=== PATIENT | female | born 1995 | race Caucasian/White ===

== ENCOUNTER 2017-01-14 09:44 | Inpatient (IN) | payer BC, OTHER ==
[~2017-01-14] VITALS: Ht 170.2 cm; Wt 56.7 kg
[2017-01-14] MEDS ORDERED: DICYCLOMINE HCL 20 MG TABLET PO PRN (18:00)
[2017-01-14] MEDS ORDERED: BUPRENORPHINE HCL 2 MG TAB.SUBL SL PRN (18:00)
[2017-01-14] MEDS ORDERED: MAGNESIUM HYDROXIDE 30 ML LIQUID UDC PO PRN (18:00)
[2017-01-14] MEDS ORDERED: MIRALAX 17 GM POWD.PACK PO PRN (18:00)
[2017-01-14] MEDS ORDERED: LORAZEPAM 1 MG TABLET PO PRN ×2 (18:00)
[2017-01-14] MEDS ORDERED: CLONIDINE HCL 0.1 MG TABLET PO PRN (18:00)
[2017-01-14] MEDS ORDERED: LORAZEPAM 2 MG/1 ML VIAL IM PRN (18:00)
[2017-01-14] MEDS ORDERED: diphenhydrAMINE 50 MG CAPSULE PO PRN (18:00)
[2017-01-14] MEDS ORDERED: IBUPROFEN 400 MG TABLET PO PRN (18:00)
[2017-01-14] MEDS ORDERED: ONDANSETRON ODT 4 MG TAB.RAPDIS SL PRN (18:00)
[2017-01-14] MEDS ORDERED: LOPERAMIDE HCL 2 MG CAPSULE PO PRN ×2 (18:00)
[2017-01-14] MEDS ORDERED: METHOCARBAMOL 750 MG TABLET PO PRN (18:00)
[2017-01-14] MEDS ORDERED: ONDANSETRON 4 MG/2 ML VIAL IM PRN (18:00)
[2017-01-14] MEDS ORDERED: MAG HYDROX/AL HYDROX/SIMETH 30 ML LIQUID UDC PO PRN (18:00)
[2017-01-14] MEDS ORDERED: ACETAMINOPHEN 325 MG TABLET PO PRN (18:00)
[2017-01-14 18:34] VITALS: BP 101/66
--- NOTE | 2017-01-14 18:36 | NUR ---
PRE-ADMISSION Pt is a 21 yr old female, AA&Ox4. [facility] for heroin and benzo use. Pt denies any allergies. Body check was complete. Skin is intact, warm and dry to touch. No tremors seen or felt. VS are 101/66, P 112, R 16, T 98.7, O2 97%, 0/10 pain. COWS score was 4, CIWA score was 2. No acute distress noted. Pt was oriented around unit and equipment in room. Will endorsed to rn shift mgr nurse to continue with full admission assessment.
[2017-01-14 18:37] LABS: *AMPHETAMINE, URINE POSITIVE (NEGATIVE); *BARBITURATE, URINE NEGATIVE (NEGATIVE); *CANNABINOID, URINE POSITIVE (NEGATIVE); *COCCAINE, URINE NEGATIVE (NEGATIVE); *OPIATE, URINE POSITIVE (NEGATIVE); *PHENCYCLIDINE SCREEN,URINE NEGATIVE (NEGATIVE)
[2017-01-14 18:46] LABS: *URINE HCG, QUAL NEGATIVE (NEGATIVE)
[2017-01-14 19:50] LABS: ALANINE AMINOTRANSFERASE 18 U/L (14-59); ALBUMIN 3.6 g/dL (3.4-5.0); ALKALINE PHOSPHATASE 124 U/L (50-136); ASPARTATE AMINOTRANSFERASE 17 U/L (15-37); BILIRUBIN,TOTAL 0.3 mg/dL (0.2-1.0); CALCIUM 8.7 mg/dL (8.5-10.1); CARBON DIOXIDE 23 mmol/L (21-32); CHLORIDE 107 mmol/L (98-107); CREATININE 0.7 mg/dL (0.6-1.3); GFR 106 mL/min (>60); GLUCOSE 103 mg/dL (74-106); MAGNESIUM 1.8 mg/dL (1.8-2.4); POTASSIUM 3.3 mmol/L (3.5-5.1); SODIUM SERUM 142 mmol/L (136-145); TOTAL PROTEIN, SERUM 7.5 g/dL (6.4-8.2); UREA NITROGEN, BLOOD 10 mg/dL (7-18)
[2017-01-14 19:55] LABS: THYROID STIMULATING HORMONE 0.578 mIU/mL (0.358-3.740)
[2017-01-14 20:00] VITALS: BP 96/60
--- NOTE | 2017-01-14 20:00 | NUR ---
ADMISSION NOTE Pt is 21 year old female, admitted to [facility] 3rd floor on 01/14/17 at 1836. As per day shift reports, body check was done, no contraband found. Pt in room, alert, awake, oriented x 4; pt ambulatory with steady gait. Pt is a primary source of information. Pt reports NKA, NKFA. Pt repots his PCP is Dr Alisha MD from [place]. Pt denies hospitalizations within past year, last hospitalization 1.5 yrs ago for drug overdose in [place]. Pt reports PMH of: (1) anxiety - was diagnosed in 2006; pt states he doesn't take any medications for anxiety, but "used to be prescribed Klonopin", which she has not taken since 2016. Pt denies hx of seizures. Pt denies taking any medication at home. Pt reports taking the following substances: 1. Xanax - pt reports she started to use Xanax in 2006, occasionally. By age 16, pt reports "abusing Xanax". For last 8 months, pt reports taking 4-7 mg every day or every other day; last time taken 4.3.17 in the amount of 2 mg PO. 2. Heroin - pt reports she started to use in 2013, at the beginning only "occasionally", until gradually she begun to use heroin daily. For past 4 months, pt has been using 1 g of heroin daily IV, last dose on 01/13/17, in the amount of 0.5 g IV 3. Methamphetamine - pt reports she takes methamphetamine "occasionally", started to use it 4 months ago, approximately once a month, of unknown amount, last taken 4.2.17, IV, unknown amount. 4. Marijuana - pt reports she started to use 11 years ago, on average smoking 1 g 2-3 grams of week; last use on 01/14/17, 1 g by smoking Rehab/ detox history: 1. Detox of [facility] - x 5 days 2. [facility], [place] - for 2 wks [address] [facility], [place] - - for 90 days Longest period of sobriety 109 days from February 2016 to Jun, 2016 Pt reports smoking tobacco since 2006, approximately 1/2 pack per day. Information on smoking cessation provide, reinforcement need d/t emotional factor. Pt presents aaox4, cooperative; is primary source of information, speech clear, information consistent. Denies SI/HI. Skin intact, warm, dry, pt reports mild anxiety, mild body aches 4/10, chills; no tremors noted; COWS score 4, CIWA score 2. Skin intact, warm. All extremities with full ROM. No SOB noted, RR even and unlabored, lung sounds clear. Heart rate regular, no murmurs, pt denies chest pain, Cap refill < 3 sec. No edema noted. Bowel sounds present x 4, last BM 01/13/17; pt denies n/v/d. No urinary difficulties reported. Pt oriented to unit and room. Pt is on fall precautions, side rails up x 2, call light within reach, bed locked in lowest position. Will continue with plan of care
[2017-01-14 20:08] LABS: HIV-1 p24 ANTIGEN NON REACTIVE (NONREACTIVE); HIV-1/2 ANTIBODY NON REACTIVE (NONREACTIVE)
[2017-01-14 20:11] LABS: ETHANOL < 3 MG/DL (0-0)
[2017-01-14] MEDS ORDERED: POTASSIUM CHLORIDE 20 MEQ TAB.PRT.SR PO ONE (20:30)
[2017-01-14 20:33] LABS: BASOPHILS # (AUTO) 0.1 K/uL (0.0-0.2); BASOPHILS % (AUTO) 0.5 % (0.0-2.0); EOSINOPHILS # (AUTO) 0.4 K/uL (0.0-0.7); EOSINOPHILS % (AUTO) 2.5 % (0.0-7.0); HEMATOCRIT 34.6 % (37.0-47.0); HEMOGLOBIN 12.4 g/dL (12.0-16.0); LYMPHOCYTES # (AUTO) 5.4 K/uL (0.8-4.8); LYMPHOCYTES % (AUTO) 37.9 % (20.5-51.5); MEAN CORPUSCULAR HEMOGLOBIN 30.6 uug (27.0-31.0); MEAN CORPUSCULAR HGB CONC 36 g/dL (32.0-37.0); MEAN CORPUSCULAR VOLUME 85.3 fL (81.0-99.0); MONOCYTES # (AUTO) 0.8 K/uL (0.1-1.30); MONOCYTES % (AUTO) 5.6 % (0.0-11.0); NEUTROPHILS # (AUTO) 7.5 K/uL (1.8-8.9); NEUTROPHILS % (AUTO) 53.5 % (38.5-71.5); PLATELET COUNT (AUTO) 228 K/uL (150-450); RED BLOOD CELL COUNT(AUTO) 4.05 MIL/uL (4.20-5.40); RED CELL DISTRIBUTION WIDTH 12.3 % (11.5-14.5); WHITE BLOOD COUNT (AUTO) 14.2 K/uL (4.0-11.2)
[2017-01-14] MEDS ORDERED: THIAMINE HCL 200 MG/2 ML VIAL IM ONE (21:00)
[2017-01-14] MEDS: GABAPENTIN 300 MG CAPSULE PO SCH (21:05)
--- NOTE | 2017-01-14 21:05 | NUR ---
PRN ROBAXIN;THIAMINE NON ADMIN Pt c/o body aches 01/21. Administered Robaxin 750 mg PO prn as ordered. Pt refused scheduled thiamine injection, states "I don't want any needles". Risk and benefits explained, pt offered to take medication 3 times, but still refused.
--- NOTE | 2017-01-14 22:00 | NUR ---
REASSESSMENT Pt states body aches decreased to 2/10 any tolerable at this time. Will continue to monitor
[2017-01-15] VITALS: BP 101/57
[2017-01-15 04:00] VITALS: BP 95/68
[2017-01-15] MEDS: HYDROXYZINE PAMOATE 25 MG CAPSULE PO PRN (04:03)
--- NOTE | 2017-01-15 04:05 | NUR ---
PRN VISTARIL Pt called, c/o increased irritability and anxiety. BP 95/68, HR 96, RR 17, SpO2 98%, CIWA = 4, COWS =4, administered Vistaril 50 mg PO prn as ordered. Side rails up x2, bed locked in lowest position, call light within reach. Will continue to monitor
--- NOTE | 2017-01-15 05:05 | NUR ---
REASSESSMENT Pt resting with eyes closed, RR unlabored at 15 breaths per minute. Fall precautions in place, will continue to monitor
--- NOTE | 2017-01-15 07:16 | NUR ---
END OF SHIFT NOTE Pt is 21 y o female, admitted on 01/14/17 for Xanax (4-7 mg daily for 8 months), heroin (1 g daily for 4 months), methamphetamine and marijuana dependence. Pt is to start 4 day Subutex taper today; has prn Ativan available based on CIWA scores. Pt was cooperative. Withdrawal s/s included anxiety, body aches 4/10, sweats, chills. Pt was medicated with prn Robaxin at 2105 and prn Vistaril at 0405; both medications were effective. Pt refused scheduled b1 injection. SBP ranged 95-101, DBP ranged 57-68 m Hg. Last COWS 4, CIWA 4 at 0400.Pt slept for 7 hrs, Po intake 650 ml, urination x 1. Lab upon admission revealed K level of 3.3; was replaced with 40 mEq of KDur. PMH of anxiety. Pt full code, regular diet, NKA. Fall precautions in place. Report endorsed to day shift nurse.
--- NOTE | 2017-01-15 07:30 | NUR ---
Start of shift note; Received report from night nurse. Patient is AOX4. Patient is a 21 y/o female admitted on 01/14/17 for Benzo/Opiate dependence. Patient reported PMH of anxiety. Patient is on full code status, regular diet, NKA. Patient was placed on a 4 day Subutex taper and Ativan PRN. Patient's last COWS is 4 and last CIWA is 4. All safety measures secured. Will continue to monitor patient.
[2017-01-15 08:00] VITALS: BP 94/66
[2017-01-15] MEDS: MULTIVITAMINS,THERAPEUTIC TABLET PO SCH (08:21)
[2017-01-15] MEDS: GABAPENTIN 300 MG CAPSULE PO SCH ×3 (08:21→22:27)
[2017-01-15] MEDS: FOLIC ACID 1 MG TABLET PO SCH (08:21)
[2017-01-15] MEDS: THIAMINE HCL 100 MG TABLET PO SCH (08:21)
[2017-01-15] MEDS: DOCUSATE SODIUM 250 MG CAPSULE PO SCH (08:21)
[2017-01-15] MEDS: BUPRENORPHINE HCL 2 MG TAB.SUBL SL SCH ×3 (08:22→22:27)
[2017-01-15] MEDS ORDERED: TUBERCULIN,PURIF.PROT.DERIV. 5 TU/0.1 ML TEST ID ONE (09:00)
[2017-01-15] MEDS ORDERED: 4 DAY TAPER BUPRENORPHINE -SERENITY PROTOCOL SL PRN (09:00)
--- NOTE | 2017-01-15 10:13 | NUR ---
PRN medication; Patient noted to be anxious, With CIWA score of 6 and obvious s/s of withdrawals ie; hot and cold flushes, stomach cramps and muscles aches. PRN Ativan 1mg PO given as per ordered for CIWA of 6. MD made aware. Will continue to monitor patient.
--- NOTE | 2017-01-15 11:13 | NUR ---
Re-assessment; Patient is calm and comfortable at this time with current CIWA score of 4. Will closely monitor patient.
[2017-01-15 12:00] VITALS: BP 102/52
[2017-01-15] MEDS: LORAZEPAM 1 MG TABLET PO SCH ×3 (13:15→22:27)
--- NOTE | 2017-01-15 15:26 | NUR ---
Nurse note; Patient appeared to be sedated,responsive to tactile/verbal stimuli, respirations even and unlabored.Patient's 1500 medications held d/t sedation.Safety measures secured. Will closely monitor patient.
[2017-01-15 16:00] VITALS: BP 98/60
--- NOTE | 2017-01-15 18:19 | NUR ---
End of shift note; Patient is AOX4. Patient is a 21 y/o female admitted on 01/14/17 for Benzo/Opiate dependence. Patient reported PMH of anxiety. Patient is on full code status, regular diet, NKA. Patient was placed on a 4 day Subutex taper and Ativan taper. Patient's last COWS is 7 and last CIWA is 8. All safety measures secured. Patient remained compliant with treatment plan. Safety measures secured. Met all needs.
--- NOTE | 2017-01-15 19:15 | NUR ---
Start of shift note Received report from day shift nurse. Pt is a 21 yo Female, A+Ox4, presenting to [facility] for Benzo/Opiate dependence. Pt has NKA, is Full Code status, and on Regular diet. Pt is on Fall precautions. Pt has HX of Anxiety. Pt is on 4 day Subutex and Ativan tapers, tolerated well. No s/s of distress noted at this time. Respirations even and unlabored. Will continue to monitor.
[2017-01-15 20:38] VITALS: BP 81/43
--- NOTE | 2017-01-16 00:39 | NUR ---
V/S, CIWA, and COWS Refused V/S, CIWA, and COWS Refused. No s/s of distress noted at this time. Respirations even and unlabored. Will continue to monitor.
--- NOTE | 2017-01-16 04:07 | NUR ---
V/S, CIWA, and COWS Refused V/S, CIWA, and COWS Refused. No s/s of distress noted at this time. Respirations even and unlabored. Will continue to monitor.
--- NOTE | 2017-01-16 07:05 | NUR ---
End of shift note Pt is a 21 yo Female, A+Ox4, presenting to [facility] for Benzo/Opiate dependence. Pt has NKA, is Full Code status, and on Regular diet. Pt is on Fall precautions. Pt has HX of Anxiety. Pt is on 4 day Subutex and Ativan tapers, tolerated well. Pt slept for a total of 11 HRS. Last COWS: 0 and Last CIWA: 1 @2000. No s/s of distress noted at this time. Respirations even and unlabored. Will endorse to day shift nurse.
--- NOTE | 2017-01-16 07:59 | NUR ---
Start of shift note; Received report from night nurse. Patient is AOX4. Patient is a 21 y/o female admitted on 01/14/17 for Benzo/Opiate dependence. Patient reported PMH of anxiety. Patient is on full code status, regular diet, NKA. Patient was placed on a 4 day Subutex taper and Ativan taper. Patient's last COWS is 2 and last CIWA is 2. All safety measures secured. Will continue to monitor patient.
[2017-01-16 08:00] VITALS: BP 98/64
[2017-01-16] MEDS ORDERED: BUPRENORPHINE HCL 2 MG TAB.SUBL SL SCH (09:00)
[2017-01-16] MEDS: GABAPENTIN 300 MG CAPSULE PO SCH ×3 (09:10→22:04)
[2017-01-16] MEDS: FOLIC ACID 1 MG TABLET PO SCH (09:10)
[2017-01-16] MEDS: DOCUSATE SODIUM 250 MG CAPSULE PO SCH (09:10)
[2017-01-16] MEDS: MULTIVITAMINS,THERAPEUTIC TABLET PO SCH (09:10)
[2017-01-16] MEDS: LORAZEPAM 1 MG TABLET PO SCH ×3 (09:10→22:05)
[2017-01-16] MEDS: THIAMINE HCL 100 MG TABLET PO SCH (09:10)
[2017-01-16 09:19] LABS: BASOPHILS % (AUTO) 0.5 % (0.0-2.0); EOSINOPHILS # (AUTO) 0.2 K/uL (0.0-0.7); HEMATOCRIT 38.4 % (37.0-47.0); HEMOGLOBIN 13.1 g/dL (12.0-16.0); LYMPHOCYTES % (AUTO) 40.1 % (20.5-51.5); MEAN CORPUSCULAR HEMOGLOBIN 29.3 uug (27.0-31.0); MEAN CORPUSCULAR HGB CONC 34 g/dL (32.0-37.0); MEAN CORPUSCULAR VOLUME 85.7 fL (81.0-99.0); MONOCYTES # (AUTO) 0.5 K/uL (0.1-1.30); MONOCYTES % (AUTO) 7.3 % (0.0-11.0); NEUTROPHILS # (AUTO) 3.7 K/uL (1.8-8.9); NEUTROPHILS % (AUTO) 49.1 % (38.5-71.5); PLATELET COUNT (AUTO) 247 K/uL (150-450); RED BLOOD CELL COUNT(AUTO) 4.48 MIL/uL (4.20-5.40); RED CELL DISTRIBUTION WIDTH 12.6 % (11.5-14.5); WHITE BLOOD COUNT (AUTO) 7.4 K/uL (4.0-11.2)
[2017-01-16 09:36] LABS: CALCIUM 8.9 mg/dL (8.5-10.1); CREATININE 0.6 mg/dL (0.6-1.3); MAGNESIUM 1.8 mg/dL (1.8-2.4); PHOSPHOROUS 4.2 mg/dL (2.5-4.9); POTASSIUM 4.1 mmol/L (3.5-5.1)
[2017-01-16 11:18] LABS: HCV AB <0.1 s/co ratio (0.0-0.9); HEPATITIS B CORE AB, IgM Negative (Negative); HEPATITIS B SURFACE AG Negative (Negative)
[2017-01-16 13:00] VITALS: BP 92/68
[2017-01-16] MEDS: BUPRENORPHINE HCL 2 MG TAB.SUBL SL SCH ×2 (14:30→22:05)
[2017-01-16 16:00] VITALS: BP 94/64
--- NOTE | 2017-01-16 18:19 | NUR ---
End of shift note; Patient is AOX4. Patient is a 21 y/o female admitted on 01/14/17 for Benzo/Opiate dependence. Patient reported PMH of anxiety. Patient is on full code status, regular diet, NKA. Patient was placed on a 4 day Subutex taper and Ativan taper. Patient's last COWS is 4 and last CIWA is 3. All safety measures secured. Patient remained compliant with treatment plan.Medications were effective in reducing withdrawal symptoms. Safety measures secured. Met all needs.
--- NOTE | 2017-01-16 19:35 | NUR ---
Start of shift note Received report from day shift nurse. Pt is a 21 yo Female, A+Ox4, presenting to [facility] for Benzo/Opiate dependence. Pt has NKA, is Full Code status, and on Regular diet. Pt is on Fall precautions. Pt has HX of Anxiety. Pt is on 4 day Subutex and Ativan tapers, tolerated well. No s/s of distress noted at this time. Respirations even and unlabored. Will continue to monitor.
[2017-01-16 20:18] VITALS: BP 103/61
[2017-01-17 00:32] VITALS: BP 91/59
[2017-01-17 04:38] VITALS: BP 98/68
--- NOTE | 2017-01-17 07:08 | NUR ---
End of shift note Pt is a 21 yo Female, A+Ox4, presenting to [facility] for Benzo/Opiate dependence. Pt has NKA, is Full Code status, and on Regular diet. Pt is on Fall precautions. Pt has HX of Anxiety. Pt is on 4 day Subutex and Ativan tapers, tolerated well. Pt slept for a total of HRS. Last COWS: 2 and Last CIWA: 3 @0400. No s/s of distress noted at this time. Respirations even and unlabored. Will endorse to day shift nurse. Addendum: 01/18/17 at 0535 by ALEKSANDRA KRISHNAMURTHY LVN Correction. Pt slept for a total of 9 HRS.
--- NOTE | 2017-01-17 07:30 | NUR ---
START OF SHIFT NOTE Pt is a 21 yr old female, AA&Ox4. Pt was admitted on 01/14/17 for Opiate and Benzo Dependence and is on 4 day Subutex and 3 day Ativan taper. Medication delicia well. Pt is full code, regular diet and NKA. Pt reports of PMH of Anxiety. No PRN's were given during the night. Last COWS score was 2, CIWA score was 3 at 0400. Pt slept for 9 hrs. Pt remains in bed resting with respirations even and unlabored. No acute distress noted. Skin is intact, warm and dry to touch. No tremors seen or felt. Pt denies any n/v. Safety precautions observed. Call light is within reach. Will continue to monitor.
[2017-01-17 08:00] VITALS: BP 98/60
[2017-01-17] MEDS: THIAMINE HCL 100 MG TABLET PO SCH (09:00)
[2017-01-17] MEDS: BUPRENORPHINE HCL 2 MG TAB.SUBL SL SCH ×4 (09:00→20:41)
[2017-01-17] MEDS: DOCUSATE SODIUM 250 MG CAPSULE PO SCH (09:00)
[2017-01-17] MEDS: LORAZEPAM 1 MG TABLET PO SCH ×2 (09:00→20:36)
[2017-01-17] MEDS: GABAPENTIN 300 MG CAPSULE PO SCH ×3 (09:00→20:36)
[2017-01-17] MEDS: MULTIVITAMINS,THERAPEUTIC TABLET PO SCH (09:00)
[2017-01-17] MEDS: FOLIC ACID 1 MG TABLET PO SCH (09:00)
--- NOTE | 2017-01-17 09:38 | NUR ---
MEDICATION REFUSED Pt refused to take all 0900 medication including Ativan 1mg PO and Subutex 2mg SL as scheduled. Pt was educated on medication regime. Pt was able to verbalize understanding but continued to refuse. Addendum: 01/17/17 at 1140 by DEQUAN ZAVALA LVN MD WAS MADE AWARE
[2017-01-17 12:00] VITALS: BP 97/55
[2017-01-17] MEDS: HYDROXYZINE PAMOATE 25 MG CAPSULE PO PRN (13:28)
--- NOTE | 2017-01-17 13:28 | NUR ---
VISTARIL PRN GIVEN pt c/o increase anxiety. Vistaril 50mg PO PRN was given as ordered. Medication delicia well. Encouraged increase fluid intake. Will continue to monitor.
[2017-01-17 16:00] VITALS: BP 100/55
--- NOTE | 2017-01-17 19:10 | NUR ---
END OF SHIFT Pt is a 21 yr old female, AA&Ox4. Pt was admitted on 01/14/17 for Opiate and Benzo Dependence and is on 4 day Subutex and 3 day Ativan taper. Pt refused all medication at 0900 as scheduled including Ativan and Subutex taper. Pt did take Subutex at 1500 as scheduled. Medication delicia well. Pt c/o anxiety. Vistaril PRN was given at 1328. Medication was effective. Last COWS score was 4, CIWA score was 3 at 1600. Pt has been cooperative with plan of care and attended group sessions and activities. Skin is intact, warm and dry to touch. No tremors seen or felt. Pt denies any n/v. Pt denies any pain or discomfort. Safety precautions observed. Call light is within reach.
--- NOTE | 2017-01-17 19:11 | NUR ---
Start of shift note Received report from day shift nurse. Pt is a 21 yo Female, A+Ox4, presenting to [facility] for Benzo/Opiate dependence. Pt has NKA, is Full Code status, and on Regular diet. Pt is on Fall precautions. Pt has HX of Anxiety. Pt is on 4 day Subutex and Ativan tapers, tolerated well. No s/s of distress noted at this time. Respirations even and unlabored. Will continue to monitor.
[2017-01-17 20:34] VITALS: BP 103/62
[2017-01-18 00:32] VITALS: BP 97/54
[2017-01-18 04:18] VITALS: BP 93/55
--- NOTE | 2017-01-18 07:01 | NUR ---
End of shift note Pt is a 21 yo Female, A+Ox4, presenting to [facility] for Benzo/Opiate dependence. Pt has NKA, is Full Code status, and on Regular diet. Pt is on Fall precautions. Pt has HX of Anxiety. Pt is on 4 day Subutex and Ativan tapers, tolerated well. Pt slept for a total of 7 HRS. Last COWS: 3 and Last CIWA: 2 @0400. No s/s of distress noted at this time. Respirations even and unlabored. Will endorse to day shift nurse.
--- NOTE | 2017-01-18 08:36 | NUR ---
BEGINNING OF SHIFT Patient endorsement report received from overnight caregiver nurse, all pertinent information discussed. patient is a 21 year old Female, full code, regular diet with no Known Allergies. Patient admitted on 01/14/2017, with admitting Dx: BZO/opiate dependence. Patient with past medical history of: Anxiety. Reports substance use of: Xanax 4-7mg daily every other day for 8 months, heroin 1 gram daily for 4 months, methamphetamine unknown amount occasionally once a month, and marijuana 1 gram 2-3 times a week for 11 years. Patients skin is intact. As per overnight caregiver report patient received no PRNs. patient slept for 7 hours. Patient currently with ongoing 4 day Subutex and 4 day Ativan taper as ordered currently to begin day 4 of taper. Patient received awake, alert and oriented x4, patient educated regarding plan of care for the day, safety measures in place. call light with in reach, will continue to monitor closely.
[2017-01-18] MEDS ORDERED: BUPRENORPHINE HCL 2 MG TAB.SUBL SL SCH (09:00)
[2017-01-18 09:13] VITALS: BP 106/65
[2017-01-18] MEDS: GABAPENTIN 300 MG CAPSULE PO SCH ×3 (09:14→21:21)
[2017-01-18] MEDS: THIAMINE HCL 100 MG TABLET PO SCH (09:14)
[2017-01-18] MEDS: DOCUSATE SODIUM 250 MG CAPSULE PO SCH (09:15)
[2017-01-18] MEDS: MULTIVITAMINS,THERAPEUTIC TABLET PO SCH (09:15)
[2017-01-18] MEDS: FOLIC ACID 1 MG TABLET PO SCH (09:15)
--- NOTE | 2017-01-18 10:00 | NUR ---
REFUSED SUBUTEX Patient awake alert and oriented x4, 0900 assessment patient presented with: tremors that can be felt but not seen and mild anxiety and heart rate of: 88 patient scheduled to receive last dose of Subutex. patient refused administration of Subutex 2 mg sl, patient explained risk vs benefits of refusing detox medication with good verbal understanding. MD notified, will continue to monitor.
[2017-01-18 13:05] VITALS: BP 111/68
[2017-01-18] MEDS ORDERED: METH-33 PO (16:12)
[2017-01-18] MEDS ORDERED: HYDR-3895 PO (16:12)
[2017-01-18] MEDS ORDERED: DICY20TA28 PO (16:12)
[2017-01-18] MEDS ORDERED: DIPH50CA37 PO (16:12)
[2017-01-18] MEDS ORDERED: Gabapentin PO (16:12)
[2017-01-18 17:00] VITALS: BP 105/66
--- NOTE | 2017-01-18 18:47 | NUR ---
END OF SHIFT Patient alert and oriented x4, compliant with therapeutic plan of care Patients vital signs were with in normal limits during shift. Patient with admitting Dx: opiate/bzo dependence, completed 4 day Subutex and Ativan taper as ordered but refused last dose of Subutex MD was notified. medications well tolerated, no ASE noted. 0900 assessment patient presented with: tremors that can be felt but not seen, heart rate of 88 and mild anxiety with cow score of: 3 and ciwa score of: 2; 1300 assessment patient presented with tremors that can be felt but not seen, and mild anxiety with cow score of: 2 and ciwa score of: 2; 1700 assessment patient presented with: tremors that can be felt but not seen and mild anxiety with cow score of: 2 and ciwa score of: 2. patient is scheduled for discharge tomorrow, noted self motivated towards sobriety. Patient encouraged adequate PO fluid intake as tolerated. Encouraged to attend group therapies/sessions to learn new coping skills to prevent relapse, patient noted attending and participating. Denies SI/HI. Safety measures in place. call light kept with in reach, will continue to monitor closely. Patient endorsed to lieutenant shift supervisor nurse, all pertinent information discussed.
--- NOTE | 2017-01-18 19:10 | NUR ---
Start of Shift Patient Received. Patient is in activities room participating in group meeting. Patient is a 21 year year old female, admitted on 01/14/17 for Benzo and Opiate Dependence, under the care of Dr. Lawler. Patient has completed her 4 day Subutex. No known allergies verbalized, wishes to be full code, following a regular Diet, Skin noted intact, place on fall precautions. Past medical history of anxiety. Patient refused last dose of Subutex at 0900. No PRN medications needed for increased signs and symptoms of withdrawal. Last noted CIWA 2 and COWS 2 at 1600. Patient is set for discharge tomorrow 01/19/17 to [facility] and Discharge Urine Drug screen still needs to be provided. All needs attended to promptly. Will continue plan of care as ordered.
[2017-01-18 20:30] VITALS: BP 101/61
[2017-01-18 21:48] LABS: *AMPHETAMINE, URINE NEGATIVE (NEGATIVE); *BARBITURATE, URINE NEGATIVE (NEGATIVE); *CANNABINOID, URINE NEGATIVE (NEGATIVE); *COCCAINE, URINE NEGATIVE (NEGATIVE); *OPIATE, URINE NEGATIVE (NEGATIVE); *PHENCYCLIDINE SCREEN,URINE NEGATIVE (NEGATIVE)
[2017-01-19 00:30] VITALS: BP 101/64
[2017-01-19 04:47] VITALS: BP 101/60
--- NOTE | 2017-01-19 07:04 | NUR ---
End of Shift Patient is in bed sleeping. Breathing even and non labored. No signs of pain or discomfort noted. Patient is a 21 year year old female, admitted on 01/14/17 for Benzo and Opiate Dependence, under the care of Dr. Lawler. Patient has completed her 4 day Subutex. No known allergies verbalized, wishes to be full code, following a regular Diet, Skin noted intact, placed on fall precautions. Past medical history of anxiety. Patient is set for discharge today 01/19/17 to [facility]. No PRN medications administered. All needs attended to promptly. Will endorse to continue plan of care as ordered.
--- NOTE | 2017-01-19 07:15 | NUR ---
Stat of shift note SBAR report rcv'd. Pt was admitted for opiate and benzo dependence. Pt has a PMH of anxiety. Pt is full code, on a regular diet, NKA. Pt has completed a subutex taper without any ASE Pt is scheduled to discharge today .Pt states that she feels ready for discharge. Pt denies any SI/HI. Pt LBM was 01/19/17. All needs addressed at this time. Will continue to monitor pt.
[2017-01-19 08:00] VITALS: BP 112/56
[2017-01-19] MEDS: GABAPENTIN 300 MG CAPSULE PO SCH (08:25)
[2017-01-19] MEDS: THIAMINE HCL 100 MG TABLET PO SCH (08:25)
[2017-01-19] MEDS: DOCUSATE SODIUM 250 MG CAPSULE PO SCH (08:25)
[2017-01-19] MEDS: FOLIC ACID 1 MG TABLET PO SCH (08:25)
[2017-01-19] MEDS: MULTIVITAMINS,THERAPEUTIC TABLET PO SCH (08:25)
--- NOTE | 2017-01-19 09:44 | NUR ---
Discharge note Pt was admitted for opiate and benzo dependence. Pt COWS and CIWA are 0. Pt VS are WNL. Pt verbalized her understanding of the discharge instructions. pt states that she feels ready for discharge. All needs addressed at this time. All of pt belongings returned to pt. Pt discharge instructions and prescriptions secured in duffle bag and given to LODE [employer]ER [employer]. Pt ID band removed, pt ambulated off of unit with [facility], left facility via [facility]
== END 2017-01-19 09:44 | disposition other institution (70) | DRG 895 ==
LOC: SRC 17:41
PROVIDERS: ADMIT Internal Medicine; ATTEND Internal Medicine
PROC: HZ2ZZZZ Detoxification Services for Substance Abuse Treatment (ICD-10-PCS; principal; 2017-01-14)
PROC: HZ31ZZZ Individual Counseling for Substance Abuse Treatment, Behavioral (ICD-10-PCS; 2017-01-16)
PROC: HZ41ZZZ Group Counseling for Substance Abuse Treatment, Behavioral (ICD-10-PCS; 2017-01-17)
DX: F11.23 Opioid dependence with withdrawal (principal); F41.9 Anxiety disorder, unspecified; F12.10 Cannabis abuse, uncomplicated; F15.10 Other stimulant abuse, uncomplicated; F17.210 Nicotine dependence, cigarettes, uncomplicated; E87.6 Hypokalemia; D72.823 Leukemoid reaction; F13.10 Sedative, hypnotic or anxiolytic abuse, uncomplicated
CPT/HCPCS: 36415; 70030-TC; 80307; 83735; 84100; 84443; 84703; 85025; 86580; 86592; 86705; 86803; 87340; 87806; A4663; G6040-TC